=== PATIENT | male | born 1970 | race Caucasian/White ===

== ENCOUNTER 2017-12-12 13:33 | Emergency (ER) | payer BC | END 2017-12-12 14:25 | disposition left against medical advice (07) | LOC: JP.ED 13:33 | DX: Z53.21 Procedure and treatment not carried out due to patient leaving prior to being seen by health care provider (principal) ==

== ENCOUNTER 2017-12-25 18:46 | Emergency (ER) | payer BC ==
[2017-12-25] MEDS ORDERED: Ondansetron 4 MG/2 ML SDV IVPUSH ONE (19:17)
[2017-12-25] MEDS ORDERED: Sodium Chloride 0.9% 10 ML Syringe FLUSH PRN (19:17)
--- NOTE | 2017-12-25 19:21 | EDM.PDOC ---
ED HPI GENERAL MEDICAL PROBLEM - General Chief Complaint: Chest Pain Stated Complaint: ABDOMINAL PAIN Time Seen by Provider: 12/25/17 19:08 Source of Information: Reports: Patient, RN Notes Reviewed History Limitations: Reports: No Limitations - History of Present Illness INITIAL COMMENTS - FREE TEXT/NARRATIVE: 47-year-old gentleman presents emergency department today complaint of diarrhea and epigastric abdominal pain, he states is been ongoing for the last 2 months but over the last 24 hours it has progressively gotten worse. He is nauseated with vomiting no shortness of breath or chest pain chest pain Pain Score (Numeric/FACES): 1 abdominal pain Pain Score (Numeric/FACES): 1 - Related Data Allergies Allergy/AdvReac Type Severity Reaction Status Date / Time No Known Allergies Allergy Verified 12/25/17 18:51 Home Meds: Home Meds Aspirin [Tana Chewable Aspirin] 81 mg PO DAILY 02/09/15 [History] Nicotine [Nicotrol] 4 puff INH Q1H 12/25/17 [History] Sodium Fluoride [Dentagel] 1 dose PO ASDIRECTED 12/25/17 [History] traZODone HCl [Trazodone HCl] 50 mg PO ASDIRECTED PRN 12/25/17 [History] Past Medical History HEENT History: Reports: Impaired Vision Cardiovascular History: Reports: CAD, High Cholesterol, Hypertension, [place], Other (See Below) Other Cardiovascular History: patient was told that there is old cardiac damage due to possible [place] Gastrointestinal History: Reports: Chronic Diarrhea, GERD Musculoskeletal History: Reports: Back Pain, Chronic - Infectious Disease History Infectious Disease History: Reports: Chicken Pox - Past Surgical History GI Surgical History: Reports: Appendectomy Social & Family History - Tobacco Use Smoking Status *Q: Light Tobacco Smoker Years of Tobacco use: 16 Tobacco Use Comment: light smoker - Caffeine Use Caffeine Use: Reports: Coffee, Tea - Recreational Drug Use Recreational Drug Use: No ED ROS GENERAL - Review of Systems Review Of Systems: See Below Constitutional: Reports: Weakness, Fatigue. Denies: Fever, Chills HEENT: Reports: No Symptoms Respiratory: Reports: No Symptoms Cardiovascular: Reports: No Symptoms GI/Abdominal: Reports: Abdominal Pain, Diarrhea, Nausea, Vomiting : Reports: No Symptoms ED EXAM, GI/ABD - Physical Exam Exam: See Below Exam Limited By: No Limitations General Appearance: Alert, WD/WN, No Apparent Distress Head: Atraumatic, Normocephalic Neck: Normal Inspection, Supple, Non-Tender, Full Range of Motion Respiratory/Chest: No Respiratory Distress, Lungs Clear, Normal Breath Sounds, No Accessory Muscle Use, Chest Non-Tender Cardiovascular: Regular Rate, Rhythm, No Murmur GI/Abdominal Exam: Soft, Non-Tender, No Distention. No: Distended Course - Vital Signs Last Recorded V/S: Last Vital Signs Temp 96.6 F 12/25/17 18:56 Pulse 71 12/25/17 20:24 Resp 16 12/25/17 18:56 BP 150/97 H 12/25/17 20:24 Pulse Ox 99 12/25/17 20:24 - Orders/Labs/Meds Orders: Active Orders 24 hr Category Date Time Status Cardiac Monitoring [RC] .As Directed Care 12/25/17 19:17 Active EKG Documentation Completion [RC] ASDIRECTED Care 12/25/17 19:18 Active Peripheral IV Care [RC] . DIRECTED Care 12/25/17 19:17 Active Chest 2V [CR] Urgent Exams 12/25/17 20:17 Taken UA W/MICROSCOPIC [URIN] Stat Lab 12/25/17 20:29 Ordered Lactated Ringers [Ringers, Lactated] 1,000 ml Med 12/25/17 19:30 Active IV ASDIRECTED Sodium Chloride 0.9% [Saline Flush] Med 12/25/17 19:17 Active 10 ml FLUSH ASDIRECTED PRN ED Antiemetic Medication Reflex [OM.PC] Stat Oth 12/25/17 19:18 Ordered Peripheral IV Insertion Adult [OM.PC] Stat Oth 12/25/17 19:17 Ordered EKG 12 Lead [EK] Stat Ther 12/25/17 19:18 Ordered Medication Orders Lactated Ringer's (Ringers, Lactated) 1,000 mls @ 999 mls/hr IV ASDIRECTED GEOFFREY Last Admin: 12/25/17 19:33 Dose: 999 mls/hr Sodium Chloride (Saline Flush) 10 ml FLUSH ASDIRECTED PRN PRN Reason: Keep Vein Open Last Admin: 12/25/17 19:41 Dose: 10 ml Labs: Laboratory Tests 12/25/17 12/25/17 12/25/17 Range/Units 19:32 19:32 19:32 WBC 9.3 (4.5-11.0) K/uL RBC 4.72 (4.30-5.90) M/uL Hgb 15.8 H (12.0-15.0) g/dL Hct 43.9 (40.0-54.0) % MCV 93 (80-98) fL MCH 34 H (27-31) pg MCHC 36 (32-36) % Plt Count 208 (150-400) K/uL Neut % (Auto) 54 (36-66) % Lymph % (Auto) 34 (24-44) % [place] % (Auto) 9 H (2-6) % Eos % (Auto) 2 (2-4) % Baso % (Auto) 0 (0-1) % Sodium 142 (140-148) mmol/L Potassium 3.4 L (3.6-5.2) mmol/L Chloride 106 (100-108) mmol/L Carbon Dioxide 23 (21-32) mmol/L Anion Gap 16.4 H (5.0-14.0) mmol/L BUN 12 (7-18) mg/dL Creatinine 0.9 (0.8-1.3) mg/dL Est Cr Clr Drug Dosing 101.47 mL/min Estimated GFR (MDRD) > 60 (>60) Glucose 106 (74-106) mg/dL Lactic Acid 1.2 (0.4-2.0) mmol/L Calcium 9.2 (8.5-10.1) mg/dL Total Bilirubin 0.6 (0.2-1.0) mg/dL AST 34 (15-37) U/L ALT 74 (12-78) U/L Alkaline Phosphatase 82 (46-116) U/L Troponin I < 0.017 (0.000-0.056) ng/mL Total Protein 6.8 (6.4-8.2) g/dL Albumin 3.7 (3.4-5.0) g/dL Globulin 3.1 (2.3-3.5) g/dL Albumin/Globulin Ratio 1.2 (1.2-2.2) Lipase 110 (73-393) U/L Urine Color Urine Appearance Urine pH (4.5-8.0) Ur Specific [place] (1.008-1.030) Urine Protein (NEGATIVE) mg/dL Urine Glucose (UA) (NEGATIVE) mg/dL Urine Ketones (NEGATIVE) mg/dL Urine Occult Blood (NEGATIVE) Urine Nitrite (NEGAITVE) Urine Bilirubin (NEGATIVE) Urine Urobilinogen (NORMAL) mg/dL Ur Leukocyte Esterase (NEGATIVE) Urine RBC (0-5) Urine WBC (0-5) Ur Epithelial Cells Amorphous Sediment Urine Bacteria Urine Mucus 12/25/17 Range/Units 20:29 WBC (4.5-11.0) K/uL RBC (4.30-5.90) M/uL Hgb (12.0-15.0) g/dL Hct (40.0-54.0) % MCV (80-98) fL MCH (27-31) pg MCHC (32-36) % Plt Count (150-400) K/uL Neut % (Auto) (36-66) % Lymph % (Auto) (24-44) % [place] % (Auto) (2-6) % Eos % (Auto) (2-4) % Baso % (Auto) (0-1) % Sodium (140-148) mmol/L Potassium (3.6-5.2) mmol/L Chloride (100-108) mmol/L Carbon Dioxide (21-32) mmol/L Anion Gap (5.0-14.0) mmol/L BUN (7-18) mg/dL Creatinine (0.8-1.3) mg/dL Est Cr Clr Drug Dosing mL/min Estimated GFR (MDRD) (>60) Glucose (74-106) mg/dL Lactic Acid (0.4-2.0) mmol/L Calcium (8.5-10.1) mg/dL Total Bilirubin (0.2-1.0) mg/dL AST (15-37) U/L ALT (12-78) U/L Alkaline Phosphatase (46-116) U/L Troponin I (0.000-0.056) ng/mL Total Protein (6.4-8.2) g/dL Albumin (3.4-5.0) g/dL Globulin (2.3-3.5) g/dL Albumin/Globulin Ratio (1.2-2.2) Lipase (73-393) U/L Urine Color Yellow Urine Appearance Clear Urine pH 6.5 (4.5-8.0) Ur Specific [place] 1.015 (1.008-1.030) Urine Protein Negative (NEGATIVE) mg/dL Urine Glucose (UA) Normal (NEGATIVE) mg/dL Urine Ketones Negative (NEGATIVE) mg/dL Urine Occult Blood Negative (NEGATIVE) Urine Nitrite Negative (NEGAITVE) Urine Bilirubin Negative (NEGATIVE) Urine Urobilinogen Normal (NORMAL) mg/dL Ur Leukocyte Esterase Negative (NEGATIVE) Urine RBC Not seen (0-5) Urine WBC Not seen (0-5) Ur Epithelial Cells Not seen Amorphous Sediment Not seen Urine Bacteria Not seen Urine Mucus Rare Meds: Medications Generic Name Dose Route Start Last Admin Trade Name Freq PRN Reason Stop Dose Admin Lactated Ringer's 1,000 mls @ 999 mls/hr 12/25/17 19:30 12/25/17 19:33 Ringers, Lactated IV 999 mls/hr ASDIRECTED GEOFFREY Administration Sodium Chloride 10 ml 12/25/17 19:17 12/25/17 19:41 Saline Flush FLUSH 10 ml ASDIRECTED PRN Administration Keep Vein Open Discontinued Medications Generic Name Dose Route Start Last Admin Trade Name Freq PRN Reason Stop Dose Admin Ondansetron HCl 4 mg 12/25/17 19:17 12/25/17 19:37 Zofran IVPUSH 12/25/17 19:18 4 mg ONETIME ONE Administration Departure - Departure Time of Disposition: 21:07 Disposition: Home, Self-Care 01 Condition: Good Clinical Impression: Gastroenteritis - Discharge Information Referrals: PCP,None [Primary Care Provider] - Forms: ED Department Discharge Additional Instructions: Use Ativan as needed for nausea and vomiting symptoms, Please followup with your primary care provider in 3-5 days if not better, please call return to the emergency department with worsening of symptoms. - My Orders Last 24 Hours: My Active Orders 12/25/17 19:17 Cardiac Monitoring [RC] .As Directed Peripheral IV Care [RC] . DIRECTED Sodium Chloride 0.9% [Saline Flush] 10 ml FLUSH ASDIRECTED PRN Peripheral IV Insertion Adult [OM.PC] Stat 12/25/17 19:18 EKG Documentation Completion [RC] ASDIRECTED ED Antiemetic Medication Reflex [OM.PC] Stat EKG 12 Lead [EK] Stat 12/25/17 19:30 Lactated Ringers [Ringers, Lactated] 1,000 ml IV ASDIRECTED 12/25/17 20:17 Chest 2V [CR] Urgent 12/25/17 20:29 UA W/MICROSCOPIC [URIN] Stat - Assessment/Plan Last 24 Hours: My Active Orders 12/25/17 19:17 Cardiac Monitoring [RC] .As Directed Peripheral IV Care [RC] . DIRECTED Sodium Chloride 0.9% [Saline Flush] 10 ml FLUSH ASDIRECTED PRN Peripheral IV Insertion Adult [OM.PC] Stat 12/25/17 19:18 EKG Documentation Completion [RC] ASDIRECTED ED Antiemetic Medication Reflex [OM.PC] Stat EKG 12 Lead [EK] Stat 12/25/17 19:30 Lactated Ringers [Ringers, Lactated] 1,000 ml IV ASDIRECTED 12/25/17 20:17 Chest 2V [CR] Urgent 12/25/17 20:29 UA W/MICROSCOPIC [URIN] Stat Plan: Assessment Acuity = acute Site and laterality = gastroenteritis Etiology = probable viral cause Manifestations = nausea, vomiting, diarrhea Location of injury = Home Lab values = CBC within normal limits, potassium low at 3.4 consistent hypokalemia, CMP otherwise unremarkable, urinalysis unremarkable Plan He had good improvement with Zofran and 1 L of fluids discharged home with Ativan 1 tab by mouth 3 times a day when necessary 1 mg in size follow-up with primary care in 3-5 days if no improvement This note was dictated using [employer] voice recognition software please call with any questions on syntax or torsten.
[2017-12-25] MEDS ORDERED: Lactated Ringers 1,000 ML IV SCH (19:30)
[2017-12-25 20:25] VITALS: BP 150/97
--- NOTE | 2017-12-26 10:07 | CR ---
Chest 2V INDICATION: cough FINDINGS: Comparison 01/05/2009. No change. Benign calcified granuloma left upper lobe. Probable old h ealed left clavicle fracture.
== END 2017-12-25 19:35 | disposition home or self-care (01) ==
LOC: JP.ED 18:46
DX: K52.9 Noninfective gastroenteritis and colitis, unspecified (principal); I10 Essential (primary) hypertension; I25.2 Old myocardial infarction; E78.00 Pure hypercholesterolemia, unspecified; F17.210 Nicotine dependence, cigarettes, uncomplicated; Z79.82 Long term (current) use of aspirin; Z79.899 Other long term (current) drug therapy
CPT/HCPCS: 36415; 71046; 80053; 81001; 83605; 83690; 84484; 85025; 93005; 96361; 96374; 99284; J2405; J7050; J7120